=== PATIENT | male | born 1955 | race Caucasian/White ===

== ENCOUNTER 2018-12-16 11:33 | Day surgery (SDC) | payer OTHER ==
[2018-12-15 15:18] VITALS: BMI 25.9
[2018-12-16] VITALS (10 sets, daily range): BP systolic 93–109; BP diastolic 55–71; PULSE 55–66; RESP 14–23; Ht 167.6 cm; Wt 73.6 kg
[~2018-12-16] VITALS: Ht 167.6 cm; Wt 73.6 kg
[~2018-12-16 11:33] MED LIST: ASPI-805 PO; ATOR10TA65 PO; METF-849 PO
[2018-12-16] MEDS ORDERED: LIDOCAINE 1% (MDV) 20 ML INJ ONE (13:29)
[2018-12-16] MEDS ORDERED: FENTAnyl 50 MCG/ML VIAL ONE (13:29)
[2018-12-16] MEDS ORDERED: HEPARIN 1000 UNITS/ML 10 ML INJ ONE (13:29)
[2018-12-16] MEDS ORDERED: VERAPAMIL 5 MG INJ ONE (13:30)
[2018-12-16] MEDS ORDERED: MIDAZOLAM 1 MG/ML 2 ML INJ ONE (13:30)
[2018-12-16] MEDS ORDERED: NITROGLYCERIN (IC) 100 MCG/ML INJ ONE (13:30)
[2018-12-16] MEDS ORDERED: SOD CHLORIDE 0.9% 1,000 ML IV SCH (14:40)
--- NOTE | 2018-12-16 14:45 | OPR ---
Date/Time of Note Date/Time of Note DATE: 12/16/18 TIME: 14:41 Operative Report Procedure Date: Dec 16, 2018 Preoperative Diagnosis Coronary artery disease Postoperative Diagnosis Coronary artery disease Operation/Procedure Performed Left heart catheterization Surgeon see signature line Job Coach/Job Developer none Anesthesia Type: moderate sedation Estimated Blood Loss: minimal Transfusion none Specimen none Grafts/Implants none Complications none Disposition: home Procedure Description DESCRIPTION OF PROCEDURE: The patient placed on equipment monitor phototypesetting, pulse oximetry and supplemental oxygen as necessary. The right wrist was prepped and draped in a sterile fashion and infiltrated with 1% lidocaine. Via the Seldinger technique, the right radial artery was accessed. A 5-Kosovan sheath was inserted and through this the right coronary catheter and left coronary catheter and pigtail were advanced into the right coronary artery and left coronary artery and the left ventricle. Placement confirmed by fluoroscopy and hemodynamics. CATHETERIZATION FINDINGS: 1. Left main: No significant disease. 2. LAD: Large caliber vessel with proximal 80% disease and distal 70% disease 3. Circumflex: Medium caliber vessel mid 90% disease 5. RCA: mid vessel occluded; receives collaterals via LAD HEMODYNAMICS: LVEDP 10mmHg No significant aortic valve gradient on pigtail pullback. LV EF 55% FINAL RESULTS: Multi-vessel obstructive coronary artery disease RECOMMENDATIONS: Evaluation for CABG COY TOLENTINO Dec 16, 2018 14:45
[2018-12-16] MEDS ORDERED: OMEP40CA6 PO (16:18)
--- NOTE | 2018-12-16 17:22 | RADRPT ---
Vent Rate: 52 bpm RR Interval: 0 msec DC Interval: 210 msec QRS Duration: 104 msec QT Interval: 460 msec QTC Interval: 427 msec P-R-T Roach: -3 - -9 - -20 degrees Sinus bradycardia with 1st degree AV block Inferior infarct , age undetermined Abnormal ECG Electronically Signed By: Anthony Bustillos
== END 2018-12-16 17:01 | disposition home or self-care (01) ==
LOC: SDS 11:33
PROVIDERS: ATTEND Internal Medicine
DX: I25.10 Atherosclerotic heart disease of native coronary artery without angina pectoris (principal); I10 Essential (primary) hypertension; R94.39 Abnormal result of other cardiovascular function study; E11.9 Type 2 diabetes mellitus without complications; Z79.82 Long term (current) use of aspirin; Z79.84 Long term (current) use of oral hypoglycemic drugs
CPT/HCPCS: 80053; 82962; 85025; 85610; 93005; 93458; C1887; J1644; J2250; J3010; Z7610

== ENCOUNTER 2019-03-02 05:14 | Inpatient (IN) | payer OTHER ==
[~2019-03-02] VITALS: Ht 166.4 cm; Wt 73.0 kg
[2019-03-02] VITALS (49 sets, daily range): BP systolic 80–127; BP diastolic 48–69; PULSE 71–114; RESP 0–38; TEMP 98–100.7; Ht 166.4 cm; Wt 73.0 kg
[~2019-03-02 05:14] MED LIST changes: +ASPI-1044 PO; +ASPI-817 PO; +ATOR40TA68 PO; +DOCU-144 PO; +FAMO20TA18 PO; +HYDR-3605 PO; +IPRA4AER INHALATION; +METF500T24 PO; +METO-335 PO; +OMEP40CA6 PO; +SIMV80TA18 PO
[2019-03-02] MEDS ORDERED: MILRINONE LACTATE 2 MG in SOD CHLORIDE 0.9% 50 ML IV ONE (06:00)
[2019-03-02] MEDS ORDERED: HEPARIN (10000 UNITS/ML) 10,000 UNIT, MILRINONE LACTATE 10 MG in SOD CHLORIDE 0.9% 1,00... SC ONE (06:00)
[2019-03-02] MEDS ORDERED: NORepinephrine 8MG/250 ML (PMX 250 ML IV ONE (06:00)
[2019-03-02] MEDS ORDERED: INSULIN HUMAN REGULAR 100 UNIT in SOD CHLORIDE 0.9% 99 ML IVPB ONE (06:00)
[2019-03-02] MEDS ORDERED: ASPIRIN 600 MG SUPP PR ONE (06:00)
[2019-03-02] MEDS ORDERED: EPINEPHrine 4 MG in DEXTROSE 5% 246 ML IV ONE (06:00)
[2019-03-02] MEDS ORDERED: PHENYLephrine 20MG IN 250 ML 250 ML IV ONE (06:00)
[2019-03-02] MEDS ORDERED: CEFAZOLIN 2 GM/50 ML (PMX) 50 ML IVPB ONE (06:30)
[2019-03-02] MEDS ORDERED: SOD CHLORIDE 0.9% 1,000 ML IV SCH (06:30)
[2019-03-02] MEDS ORDERED: PAPAVERINE 60 MG INJ ONE ×2 (06:37→08:22)
[2019-03-02] MEDS ORDERED: HEPARIN 1000 UNITS/ML 10 ML INJ ONE ×3 (06:37→08:15)
[2019-03-02] MEDS ORDERED: VANCOMYCIN 1 GM INJ ONE (06:37)
[2019-03-02] MEDS ORDERED: THROMBIN 5000 UNIT (RECOTHROM) VIAL ONE (06:37)
[2019-03-02] MEDS ORDERED: GELATIN SIZE 100 SPONGE ONE (06:37)
[2019-03-02] MEDS ORDERED: DOPamine-D5W 1.6 MG/ML 250 ML ONE (07:00)
[2019-03-02] MEDS ORDERED: ISOFLURANE 15 MIN ONE (07:00)
[2019-03-02] MEDS ORDERED: NITROGLYCERIN 50 MG/D5W 250 ML BTL ONE (07:00)
[2019-03-02] MEDS ORDERED: MIDAZOLAM 5 ML ONE ×2 (07:21→09:08)
[2019-03-02] MEDS ORDERED: ALBUMIN HUMAN 25% 200 ML ONE (08:05)
[2019-03-02] MEDS ORDERED: MANNITOL 20% 500 ML ONE (08:05)
[2019-03-02] MEDS ORDERED: LIDOCAINE 2% (SDV) 5 ML INJ ONE ×2 (08:05→09:44)
[2019-03-02] MEDS ORDERED: CA CHLORIDE 10% 10 ML SYRINGE ONE (08:05)
[2019-03-02] MEDS ORDERED: NA BICARBONATE 8.4% 50 ML SYG ONE (08:05)
[2019-03-02] MEDS ORDERED: PHENYLephrine 10 MG INJ ONE (08:05)
[2019-03-02] MEDS ORDERED: POTASSIUM CHLORIDE 40 MEQ INJ ONE (08:06)
[2019-03-02] MEDS ORDERED: MAGNESIUM SULFATE (MG) 50% 10 ML INJ ONE (08:06)
[2019-03-02] MEDS ORDERED: AMINOCAPROIC ACID 5 GM INJ ONE ×4 (08:06→09:45)
[2019-03-02] MEDS ORDERED: NORepinephrine 4 MG INJ ONE (08:06)
[2019-03-02] MEDS ORDERED: CEFAZOLIN 1 GM INJ ONE ×2 (08:07→09:45)
[2019-03-02] MEDS ORDERED: HEPARIN 10,000 UNITS/ML 1 ML INJ ONE (09:38)
[2019-03-02] MEDS ORDERED: ETOMIDATE 20 MG INJ ONE (09:44)
[2019-03-02] MEDS ORDERED: ROCURONIUM 50 MG INJ ONE (09:44)
[2019-03-02] MEDS ORDERED: PROTAMINE 250 MG INJ ONE (10:18)
[2019-03-02] MEDS ORDERED: FENTAnyl 50 MCG/ML VIAL IV PRN (13:00)
[2019-03-02] MEDS ORDERED: LORAZEPAM 2 MG INJ IV PRN (13:00)
[2019-03-02] MEDS ORDERED: MEPERIDINE 25 MG INJ IV PRN (13:00)
[2019-03-02] MEDS ORDERED: NITROGLYCERIN 50 MG/D5W (PMX) 250 ML IV SCH (13:00)
[2019-03-02] MEDS ORDERED: ONDANSETRON 4 MG INJ IV PRN ×2 (13:00→22:30)
[2019-03-02] MEDS ORDERED: DOPamine-D5W 1.6 MG/ML 250 ML IV SCH (13:00)
[2019-03-02] MEDS ORDERED: DIPHENHYDRAMINE 50 MG INJ IV PRN (13:00)
[2019-03-02] MEDS ORDERED: morphine 2 MG INJ IV PRN ×2 (13:00→17:00)
[2019-03-02] MEDS ORDERED: PROPOFOL 100 ML ONE (14:04)
[2019-03-02] MEDS ORDERED: MILRINONE LACTATE 100 ML ONE (14:15)
[2019-03-02] MEDS: morphine 2 MG INJ IV PRN ×3 (14:56→22:23)
[2019-03-02] MEDS: PROPOFOL 100 ML IV SCH (17:03)
[2019-03-02] MEDS ORDERED: DEXTROSE 50% 50 ML SYRINGE IV PRN ×2 (18:00)
[2019-03-02] MEDS: D5-0.2 NACL + KCL 20 MEQ 1,000 ML IV SCH (18:10)
[2019-03-02] MEDS: NORepinephrine 8MG/250 ML (PMX 250 ML IV SCH (18:35)
[2019-03-02] MEDS: INSULIN HUMAN REGULAR 100 UNIT in SOD CHLORIDE 0.9% 99 ML IV SCH (18:43)
[2019-03-02] MEDS: ACCU-CHEK XX SCH ×6 (18:47→23:07)
[2019-03-03] VITALS (79 sets, daily range): BP systolic 76–135; BP diastolic 52–82; PULSE 90–128; RESP 18–46; TEMP 99.9–101
[2019-03-03] MEDS ORDERED: ACETAMINOPHEN 325 MG TAB PO PRN (00:30)
[2019-03-03] MEDS: ACCU-CHEK XX SCH ×24 (01:12→23:01)
[2019-03-03] MEDS: morphine 2 MG INJ IV PRN ×5 (02:10→15:54)
[2019-03-03] MEDS: PROPOFOL 100 ML IV SCH ×2 (02:30→13:43)
[2019-03-03] MEDS: ALBUTEROL/IPRATROPIUM (NEB) 3 ML AMP HHN PRN ×5 (08:05→20:48)
[2019-03-03] MEDS: METOPROLOL 25 MG TAB PO SCH ×2 (08:29→20:37)
[2019-03-03] MEDS: ASPIRIN (EC) 81 MG TAB PO SCH (08:33)
[2019-03-03] MEDS: D5-0.2 NACL + KCL 20 MEQ 1,000 ML IV SCH (10:00)
[2019-03-03] MEDS: KETOROLAC 15 MG INJ IV PRN ×2 (10:00→17:03)
[2019-03-03] MEDS: NORepinephrine 8MG/250 ML (PMX 250 ML IV SCH (11:45)
[2019-03-03] MEDS: ALBUMIN HUMAN 25% 100 ML IV SCH ×2 (15:51→23:12)
[2019-03-03] MEDS ORDERED: ONDANSETRON 4 MG INJ IV PRN (16:30)
[2019-03-03] MEDS ORDERED: ALBUMIN HUMAN 5% 250 ML IV SCH (19:00)
[2019-03-03] MEDS ORDERED: FUROSEMIDE 20 MG INJ IV ONE (19:00)
[2019-03-03] MEDS ORDERED: ALBUMIN HUMAN 5% 250 ML IV ONE (19:30)
[2019-03-03] MEDS: ATORVASTATIN 40 MG TAB PO SCH (20:21)
[2019-03-03] MEDS: DOCUSATE SODIUM 100 MG CAP PO SCH (20:21)
[2019-03-03] MEDS: FAMOTIDINE 20 MG TAB PO SCH (20:21)
[2019-03-03] MEDS: HYDROCODONE/APAP (7.5/325) TAB PO PRN (20:22)
[2019-03-03] MEDS ORDERED: ATORVASTATIN 20 MG TAB PO SCH (21:00)
[2019-03-04] VITALS (53 sets, daily range): BP systolic 83–152; BP diastolic 50–81; PULSE 91–117; RESP 18–33
[2019-03-04] MEDS: ACCU-CHEK XX SCH ×10 (00:06→09:00)
[2019-03-04] MEDS: morphine 2 MG INJ IV PRN ×2 (00:43→03:17)
[2019-03-04] MEDS: NORepinephrine 8MG/250 ML (PMX 250 ML IV SCH (01:15)
[2019-03-04] MEDS: INSULIN HUMAN REGULAR 100 UNIT in SOD CHLORIDE 0.9% 99 ML IV SCH (01:28)
[2019-03-04] MEDS: D5-0.2 NACL + KCL 20 MEQ 1,000 ML IV SCH ×2 (02:55→20:26)
[2019-03-04] MEDS: KETOROLAC 15 MG INJ IV PRN ×3 (05:47→22:11)
[2019-03-04] MEDS: ALBUMIN HUMAN 25% 100 ML IV SCH (07:10)
[2019-03-04] MEDS: METOPROLOL 25 MG TAB PO SCH ×2 (09:00→20:16)
[2019-03-04] MEDS: DOCUSATE SODIUM 100 MG CAP PO SCH ×2 (09:29→20:20)
[2019-03-04] MEDS: FAMOTIDINE 20 MG TAB PO SCH ×2 (09:29→20:20)
[2019-03-04] MEDS: ASPIRIN (EC) 81 MG TAB PO SCH (09:29)
[2019-03-04] MEDS ORDERED: GLUCOSE GEL 15 GRAM TUBE BUCCAL PRN (09:30)
[2019-03-04] MEDS ORDERED: GLUCAGON 1 MG INJ IM PRN (09:30)
[2019-03-04] MEDS ORDERED: GLUCOSE GEL 15 GRAM TUBE PO PRN ×2 (09:30)
[2019-03-04] MEDS ORDERED: DEXTROSE 50% 50 ML SYRINGE IV PRN ×2 (09:30)
[2019-03-04] MEDS: HYDROCODONE/APAP (7.5/325) TAB PO PRN ×2 (10:59→17:11)
[2019-03-04] MEDS: INSULIN ASPART [NOVOLOG] 3 ML PEN SC SCH ×3 (12:10→20:19)
[2019-03-04] MEDS: ATORVASTATIN 40 MG TAB PO SCH (20:20)
[2019-03-05] VITALS (19 sets, daily range): BP systolic 91–127; BP diastolic 57–78; PULSE 88–111; RESP 16–32
[2019-03-05] MEDS: HYDROCODONE/APAP (7.5/325) TAB PO PRN ×4 (01:12→23:10)
[2019-03-05] MEDS: ACCU-CHEK XX SCH (01:25)
[2019-03-05] MEDS: KETOROLAC 15 MG INJ IV PRN ×2 (05:49→13:40)
[2019-03-05] MEDS: FAMOTIDINE 20 MG TAB PO SCH ×2 (08:32→21:38)
[2019-03-05] MEDS: ASPIRIN (EC) 81 MG TAB PO SCH (08:32)
[2019-03-05] MEDS: DOCUSATE SODIUM 100 MG CAP PO SCH ×2 (08:33→21:38)
[2019-03-05] MEDS: D5W-0.45 NACL + KCL 20 MEQ 1,000 ML IV SCH ×2 (08:33→17:26)
[2019-03-05] MEDS: INSULIN ASPART [NOVOLOG] 3 ML PEN SC SCH ×4 (09:33→22:03)
[2019-03-05] MEDS: morphine 2 MG INJ IV PRN (11:09)
[2019-03-05] MEDS: SOD FERRIC GLUC COMPLX 125 MG in SOD CHLORIDE 0.9% 100 ML IVPB SCH (13:34)
[2019-03-05] MEDS: ATORVASTATIN 40 MG TAB PO SCH (21:38)
[2019-03-06 00:14] VITALS: BP 100/56; PULSE 95; RESP 18
[2019-03-06] MEDS: D5W-0.45 NACL + KCL 20 MEQ 1,000 ML IV SCH (00:40)
[2019-03-06] MEDS: ACCU-CHEK XX SCH (02:25)
[2019-03-06] MEDS: morphine 2 MG INJ IV PRN (04:06)
[2019-03-06 04:48] VITALS: BP 102/60; PULSE 97; RESP 18
[2019-03-06 07:20] VITALS: BP 112/67; PULSE 92; RESP 18
[2019-03-06] MEDS: ASPIRIN (EC) 81 MG TAB PO SCH (08:09)
[2019-03-06] MEDS: FAMOTIDINE 20 MG TAB PO SCH ×2 (08:09→20:04)
[2019-03-06] MEDS: HYDROCODONE/APAP (7.5/325) TAB PO PRN ×2 (08:09→20:04)
[2019-03-06] MEDS: DOCUSATE SODIUM 100 MG CAP PO SCH ×2 (08:09→20:05)
[2019-03-06] MEDS: METOPROLOL (XL) 25 MG TAB PO SCH (08:10)
[2019-03-06] MEDS: INSULIN ASPART [NOVOLOG] 3 ML PEN SC SCH ×4 (08:32→20:09)
[2019-03-06] MEDS ORDERED: KETOROLAC 15 MG INJ IV STA (10:59)
[2019-03-06] MEDS ORDERED: KETOROLAC 15 MG INJ IV PRN (11:00)
[2019-03-06 12:00] VITALS: BP 117/66; PULSE 96; RESP 18
[2019-03-06] MEDS: SOD FERRIC GLUC COMPLX 125 MG in SOD CHLORIDE 0.9% 100 ML IVPB SCH (12:34)
[2019-03-06 15:03] VITALS: BP 103/60; PULSE 86; RESP 18
[2019-03-06 20:00] VITALS: BP 97/56; PULSE 87; RESP 20
[2019-03-06] MEDS: ATORVASTATIN 40 MG TAB PO SCH (20:05)
[2019-03-07 00:08] VITALS: BP 99/63; PULSE 97; RESP 18
[2019-03-07] MEDS: HYDROCODONE/APAP (7.5/325) TAB PO PRN ×4 (01:55→23:32)
[2019-03-07] MEDS: ACCU-CHEK XX SCH (01:56)
[2019-03-07 03:52] VITALS: BP 95/53; PULSE 98; RESP 18
[2019-03-07 07:38] VITALS: BP 100/55; PULSE 90; RESP 18
[2019-03-07] MEDS: INSULIN ASPART [NOVOLOG] 3 ML PEN SC SCH ×4 (08:00→20:25)
[2019-03-07] MEDS: METOPROLOL (XL) 25 MG TAB PO SCH (08:22)
[2019-03-07] MEDS: ASPIRIN (EC) 81 MG TAB PO SCH (08:22)
[2019-03-07] MEDS: FAMOTIDINE 20 MG TAB PO SCH ×2 (08:22→20:25)
[2019-03-07] MEDS: DOCUSATE SODIUM 100 MG CAP PO SCH ×2 (08:23→20:25)
[2019-03-07] MEDS: SOD FERRIC GLUC COMPLX 125 MG in SOD CHLORIDE 0.9% 100 ML IVPB SCH (12:10)
[2019-03-07 12:28] VITALS: BP 97/56; PULSE 88; RESP 18
[2019-03-07 15:31] VITALS: BP 101/59; PULSE 87; RESP 18
[2019-03-07 20:15] VITALS: BP 118/63; PULSE 97; RESP 16
[2019-03-07] MEDS: ATORVASTATIN 40 MG TAB PO SCH (20:25)
[2019-03-08 00:09] VITALS: BP 112/71; PULSE 101; RESP 16
[2019-03-08] MEDS: ACCU-CHEK XX SCH (02:08)
[2019-03-08 04:21] VITALS: BP 112/66; PULSE 93; RESP 16
[2019-03-08 07:17] VITALS: BP 98/62; PULSE 98; RESP 20
[2019-03-08] MEDS: FAMOTIDINE 20 MG TAB PO SCH (09:05)
[2019-03-08] MEDS: ASPIRIN (EC) 81 MG TAB PO SCH (09:06)
[2019-03-08] MEDS: DOCUSATE SODIUM 100 MG CAP PO SCH (09:06)
[2019-03-08] MEDS: INSULIN ASPART [NOVOLOG] 3 ML PEN SC SCH ×2 (09:39→11:50)
[2019-03-08 11:46] VITALS: BP 96/63; PULSE 94; RESP 20
[2019-03-08] MEDS: METOPROLOL (XL) 25 MG TAB PO SCH (13:54)
[2019-03-08 14:51] VITALS: BP 96/62; PULSE 96; RESP 20
== END 2019-03-08 16:40 | disposition home or self-care (01) | DRG 228 ==
LOC: REC 05:14 → ICU 12:45 → TEL 03-05 16:41
PROVIDERS: ADMIT Thoracic Surgery (Cardiothoracic Vascular Surgery); ATTEND Thoracic Surgery (Cardiothoracic Vascular Surgery)
PROC: 02C00ZZ Extirpation of Matter from Coronary Artery, One Artery, Open Approach (ICD-10-PCS; 2019-03-02)
PROC: 021109W Bypass Coronary Artery, Two Arteries from Aorta with Autologous Venous Tissue, Open Approach (ICD-10-PCS; 2019-03-02)
PROC: 06BP4ZZ Excision of Right Saphenous Vein, Percutaneous Endoscopic Approach (ICD-10-PCS; 2019-03-02)
PROC: 02100Z9 Bypass Coronary Artery, One Artery from Left Internal Mammary, Open Approach (ICD-10-PCS; principal; 2019-03-02 07:30)
DX: I25.10 Atherosclerotic heart disease of native coronary artery without angina pectoris (principal); R57.0 Cardiogenic shock; J96.00 Acute respiratory failure, unspecified whether with hypoxia or hypercapnia; R65.10 Systemic inflammatory response syndrome (SIRS) of non-infectious origin without acute organ dysfunction; J95.811 Postprocedural pneumothorax; F17.210 Nicotine dependence, cigarettes, uncomplicated; K21.9 Gastro-esophageal reflux disease without esophagitis; E78.5 Hyperlipidemia, unspecified; E11.9 Type 2 diabetes mellitus without complications; I10 Essential (primary) hypertension; F17.200 Nicotine dependence, unspecified, uncomplicated; Y84.8 Other medical procedures as the cause of abnormal reaction of the patient, or of later complication, without mention of misadventure at the time of the procedure; Y92.234 Operating room of hospital as the place of occurrence of the external cause; Z79.4 Long term (current) use of insulin; Z79.82 Long term (current) use of aspirin
CPT/HCPCS: 36592; 36600; 71045; 80048; 80076; 82803; 82962; 83735; 85025; 85610; 85730; 86850; 86900; 86901; 86920; 87081; 88304; 93005; 93312; 93320; 93325; 94640; 94664; 97116; 97162; J0171; J0690; J1265; J1644; J1815; J1885; J1940; J2250; J2260; J2270; J2370; J2405; J2440; J2720; J2916; J3010; J3370; J3475; J3480; J7030; J7070; P9045; P9047